=== PATIENT | male | born 1985 | race Caucasian/White ===

== ENCOUNTER 2021-11-15 20:20 | Emergency (ER) | payer OTHER, SELFPAY ==
[2021-11-15 20:30] VITALS: BP 135/82; PULSE 91; RESP 18; TEMP 36.4; O2SAT 98
--- NOTE | 2021-11-15 21:27 | ED.WOUNDLAC ---
HPI - Wound/Laceration General Chief Complaint: Wound/Laceration Stated Complaint: laceration to left hand Time Seen by Provider: 11/15/21 20:50 Source: patient Mode of arrival: ambulatory Limitations: no limitations History of Present Illness HPI narrative: Patient is a 36-year-old male who presents the ED with report of a laceration to his left dorsal hand. Patient reports he was changing a lamp today when the glass dome part of the lamp broke, cutting him across his left dorsal hand. Range of motion intact. No numbness, tingling. Bleeding controlled at this time. Tetanus status unknown. Related Data Allergies Allergy/AdvReac Type Severity Reaction Status Date / Time No Known Drug Allergies Allergy Itching Verified 11/15/21 20:33 Review of Systems Review of Systems: CONSTITUTIONAL: Denies fever, chills, or sweats. SKIN: Reports laceration to L dorsal hand. NEUROLOGIC: Denies tingling, numbness, or weakness. All systems reviewed & are unremarkable except as noted in HPI and below PMFSH Past Medical History Medical History (Updated 11/15/21 @ 21:37 by Aby Dalton PA-C) No pertinent past medical history Surgical History Surgical History (Updated 11/15/21 @ 21:29 by Aby Dalton PA-C) No pertinent past surgical history Social History Social History (Updated 11/15/21 @ 21:29 by Aby Dalton PA-C) Smoking status: Never smoker Exam Narrative: GENERAL: Well appearing, well-nourished, non-toxic, in no acute distress. HEAD: Normocephalic, atraumatic. NECK: Supple. No adenopathy, no masses. RESPIRATORY: Airway patent, respirations nonlabored. CARDIOVASCULAR: Regular rate and rhythm without murmurs, rubs, or gallops. Radial pulses 2+ and equal bilaterally. MUSCULOSKELETAL: Moves all extremities. Strength/ROM intact without gross deformities. Full nonpainful range of motion, flexion, extension of left hand. 3.5 cm relatively superficial laceration to L dorsal hand laterally across region of the second through fourth metacarpals, no evidence of tendon involvement or deeper laceration. SKIN: Warm, dry, normal color. No rashes. NEURO: A&O X3. Speech clear. Cranial nerves II-XII grossly intact. Steady gait. No ataxic movements. PSYCHIATRIC: Appropriate mood and affect. Normal interaction. Course Vital Signs Vital signs: Vital Signs Temperature 97.5 F L 11/15/21 20:30 Pulse Rate 91 11/15/21 20:30 Respiratory Rate 18 11/15/21 20:30 Blood Pressure 135/82 11/15/21 20:30 Pulse Oximetry 98 11/15/21 20:30 Temperature 97.5 F L 11/15/21 20:30 Pulse Rate 91 11/15/21 20:30 Respiratory Rate 18 11/15/21 20:30 Blood Pressure 135/82 11/15/21 20:30 Pulse Oximetry 98 11/15/21 20:30 Procedures Laceration Laceration 1: Date: 11/15/21 Time: 21:20 Site: hand Side (If applicable): left Size (cm): 3.5 Description: linear Depth: simple, single layer Local Anesthetic: lidocaine 1% and with epi Amount of anesthesia used (mL): 5 Pre-repair: wound explored and irrigated ====== Skin Level ====== Skin layer closed with: nylon Size (cm): 4-0 Number of sutures: 6 Technique: simple, interrupted ====== Subcutaneous Layer ====== ====== Muscle Layer ====== ====== Tendon Layer ====== MDM - Wound/Laceration MDM Narrative Medical decision making narrative: Patient neurovascularly intact. Laceration irrigated and repaired without complications. Tetanus status updated. Patient given wound care instructions and reasons to return to the ED. He agrees with plan. Vital signs stable. Medical Records Attestation: I reviewed the patient's medical records. Discharge Plan Discharge Clinical Impression: Laceration of hand Qualifiers: Encounter type: initial encounter Foreign body presence: without foreign body Laterality: left Qualified Code(s): S61.412A - Lac
[2021-11-15] MEDS: TETANUS,DIPHTHERIA,AC PERTUSSIS ADULT (0.5 ML) BOOSTRIX IM (21:47)
== END 2021-11-15 21:51 | disposition home or self-care (01) ==
PROVIDERS: Emergency Provider Emergency Medicine
DX: S61.412A Laceration without foreign body of left hand, initial encounter (principal); Z23 Encounter for immunization; W25.XXXA Contact with sharp glass, initial encounter
CPT/HCPCS: 12002; 90471; 90715; 99282

== ENCOUNTER 2022-03-07 12:09 | Emergency (ER) | payer OTHER, SELFPAY ==
[2022-03-07 12:48] VITALS: BP 137/93; PULSE 86; RESP 16; TEMP 37.2; O2SAT 99
--- NOTE | 2022-03-07 13:23 | ED.GENADULT ---
HPI - General Adult General Chief complaint: Dental/Oral Stated complaint: infection on lip Time Seen by Provider: 03/07/22 13:18 Source: patient Mode of arrival: ambulatory Limitations: no limitations History of Present Illness HPI narrative: 36 year old male presents to [facility] care with complaints of red swollen lower lip with pustule formation noted with drainage of purulent material for the past 2 days. Patient denies any injury to his lip, took a couple of doses of Valtrex that were his 's thinking it may be a fever sore but no improvement.No lesions noted inside of mouth, no lesions under tongue or in back of throat.Patient report that lip is very painful rates his pain 08/16 MD complaint: lower lip swollen red with purulent drainage. Onset (ago): day(s) (2) Severity scale (1-10): 6 Treatments prior to arrival: other (took 2 doses of valtrex thinking maybe it was cold sore.) Related Data Allergies Allergy/AdvReac Type Severity Reaction Status Date / Time No Known Allergies Allergy Verified 03/07/22 13:30 Review of Systems Review of Systems: CONSTITUTIONAL: Denies fever, chills, or sweats. EYES: Denies visual changes, redness, or discharge. ENT: Denies rhinorrhea, congestion, sore throat, or otalgia.positive for swelling and pain to lower lip with pustule formation and purulent drainage. CARDIOVASCULAR: Denies chest pain, palpitations, or edema. RESPIRATORY: Denies cough or dyspnea. GASTROINTESTINAL: Denies abdominal pain, nausea, vomiting, or diarrhea. GENITOURINARY: Denies dysuria or hematuria. SKIN: Denies rash or itching. MUSCULOSKELETAL: Denies back pain, joint pain, or myalgi NEUROLOGIC: Denies headache, numbness, or weakness. PSYCHIATRIC: Denies anxiety or depression. All systems reviewed & are unremarkable except as noted in HPI and below PMFSH Past Medical History Medical History (Updated 03/08/22 @ 00:01 by John Paul Rosa) No pertinent past medical history Surgical History Surgical History (Updated 11/15/21 @ 21:29 by Aby Dalton PA-C) No pertinent past surgical history Social History Social History (Updated 03/11/22 @ 19:42 by Nanci Almonte NP) Smoking status: Never smoker Alcohol intake: current Alcohol use details: social Substance use type: does not use Gender identity (if verbalized by the patient): Male Comments At time of signature, agree with nursing past medical, surgical, social and family history. There is no relevant family history pertinent to the presenting complaint Exam Narrative: GENERAL: Well-appearing, well-nourished, and in no acute distress. HEAD: Normocephalic, atraumatic. EYES: PERRLA and EOMI. ENT: Nares clear, no rhinorrhea or epistaxis. Mucous membranes moist.TM;s normal with good light reflex, throat pink with no lesions or exudates or swelling. lower lip swollen red with pustule formation noted with area draining purulent material and some blood, painful, No facial swelling noted or any lesions noted inside of mouth.no Trung angina or any trismus NECK: Supple.no lymphadenopathy CHEST: Clear to auscultation. No respiratory distress.SAO2 99% on room air HEART: Regular rate and rhythm. No murmur heard. Normal peripheral pulses. ABDOMEN: Soft, nontender, nondistended, normal active bowel sounds. EXTREMITIES: Normal range of motion. No edema. SKIN: Warm, dry, no rash. NEURO: No focal deficits. Alert and oriented x3. Course Course Emergency Course: Patient is aware of diagnosis, understands and agrees to treatment plan.? Anticipatory guidance given.? Patient agrees to follow-up as directed and is aware of reasons to seek care at the emergency department. Portions of this record may have been created with voice recognition software Level of Care: Express Care Visit Vital Signs Vital signs: Vital Signs Temperature 37.2 C 03/07/22 12:48 Pulse Rate 86 03/07/22 12:48 Respiratory Rate 16 03/07/22 12:48 Blood Pressure 137/93 H
== END 2022-03-07 13:37 | disposition home or self-care (01) ==
PROVIDERS: Emergency Provider Registered Nurse
DX: K13.0 Diseases of lips (principal)
CPT/HCPCS: 99213; G0463

== ENCOUNTER 2023-11-15 14:54 | Emergency (ER) | payer OTHER, SELFPAY ==
--- NOTE | 2023-11-15 15:09 | ED.GENADULT ---
HPI - General Adult General Chief complaint: Upper Respiratory Infection Stated complaint: SINUS CONGESTION Time Seen by Provider: 11/15/23 15:09 Source: patient Mode of arrival: ambulatory Limitations: no limitations History of Present Illness HPI narrative: 38-year-old male patient presents to the [facility] with complaints of sinus symptoms past week. Patient states he has had a sinus headache, congestion, sinus pressure and nasal drainage of thick green sputum. Patient states cough at times. Denies fevers, body aches or chills. Patient's states that his whole household has had this within the past week. Denies any chest pain, shortness of breath. Denies any abdominal pain, nausea, vomiting or diarrhea. Related Data Allergies Allergy/AdvReac Type Severity Reaction Status Date / Time No Known Allergies Allergy Verified 11/15/23 15:00 Review of Systems Review of Systems: CONSTITUTIONAL: Denies fever, chills, or sweats. EYES: Denies visual changes, redness, or discharge. ENT: Positive rhinorrhea, congestion, denies sore throat, or otalgia. CARDIOVASCULAR: Denies chest pain, palpitations, or edema. RESPIRATORY: positive cough denies dyspnea. GASTROINTESTINAL: Denies abdominal pain, nausea, vomiting, or diarrhea. GENITOURINARY: Denies dysuria or hematuria. SKIN: Denies rash or itching. MUSCULOSKELETAL: Denies back pain, joint pain, or myalgia. NEUROLOGIC: positive headache, denies numbness, or weakness. PSYCHIATRIC: Denies anxiety or depression. PMFSH Past Medical History Medical History No pertinent past medical history Surgical History Surgical History No pertinent past surgical history Social History Social History Smoking status: Never smoker Alcohol intake: current Alcohol use details: social Substance use type: does not use Gender identity (if verbalized by the patient): Male Comments At the time of my signature I agree with nursing past medical history, surgical, social, and family history. There is no relevant family history pertinent to the presenting complaint. Exam Narrative: GENERAL: Well-appearing, well-nourished, and in no acute distress. HEAD: Normocephalic, atraumatic. EYES: PERRLA and EOMI. ENT: Nares with erythema edema noted bilaterally. Small little blister noted to the rim of the right near., Yellow rhinorrhea no epistaxis. Mucous membranes moist. posterior pharynx with no erythema, tonsillar enlargement, exudates or lesions present. There is some postnasal drip present. NECK: Supple. No lymphadenopathy CHEST: Clear to auscultation. No respiratory distress. HEART: Regular rate and rhythm. No murmur heard. Normal peripheral pulses. ABDOMEN: Soft, nontender, nondistended, normal active bowel sounds. EXTREMITIES: Normal range of motion. No edema. SKIN: Warm, dry, no rash. NEURO: No focal deficits. Alert and oriented x3. Course Course Level of Care: Express Care Visit Vital Signs Vital signs: Vital signs reviewed. Medical Decision Making MDM Narrative Medical decision making narrative: Discussed with patient this is most likely viral and I would encourage him to take [id number] antihistamines during the day, may take Benadryl at night, a nasal steroid such as Flonase and I will prescribe him a Medrol Dosepak to help with the congestion. Patient verbalized understanding denies any other questions or concerns at this time. Differential Diagnosis Differential Diagnosis: Differential diagnosis: Allergic rhinitis, chronic sinusitis, tonsillitis, acute sinusitis, infectious mononucleosis, seasonal influenza, pertussis, diphtheria, meningococcal disease, viral syndrome, viral bronchitis, RSV, COVID-19 Critical Care Time Critical Care Time Critical Care Time: No Discharge Plan Dis
[2023-11-15 15:31] VITALS: BP 116/75; PULSE 88; RESP 16; TEMP 36.6; O2SAT 98
== END 2023-11-15 15:27 | disposition home or self-care (01) ==
PROVIDERS: Emergency Provider Nurse Practitioner Family
DX: J01.90 Acute sinusitis, unspecified (principal)
CPT/HCPCS: 99213; G0463